=== PATIENT | female | born 1975 | race Hispanic/Latino ===

== ENCOUNTER 2016-10-15 19:24 | Inpatient (IN) | payer OTHER ==
[~2016-10-15] VITALS: Ht 149.9 cm; Wt 96.3 kg
[~2016-10-15 19:24] MED LIST: CYCL10TA9 PO; NAPR500T PO; NOMED; NPR500T PO; OMEP20TA86 PO; TOPI25TA26 PO
[2016-10-15 19:29] VITALS: BP 147/91; PULSE 104; RESP 18; O2SAT 100
--- NOTE | 2016-10-15 20:01 | ED.REPORT ---
HPI-Dyspnea / Wheezing Date of Service Oct 15, 2016 ED Provider: Issac Pelaez MD History of Present Illness: OCC This is a 41 year old female with a history of asthma presenting to the emergency department complaining go dyspnea that began 2 days ago. Associated with non-productive cough, pt now requiring albuterol at home every few minutes for mild relief. Robitussin has not provided cough relief. Denies fever, chills , sputum production, lower extremity swelling, headache, nausea, vomiting, abdominal pain. Nursing Notes Stated Complaint: WHEEZING/SOB/ASTHMA Chief Complaint: Respiratory Distress Nursing Notes Reviewed: Yes ([employer], [employer] not reconciled) Allergies: Coded Allergies: Penicillins (Verified Allergy, Severe, RASH, 10/15/16) hydrocodone bitartrate (Verified Allergy, Severe, N&V, 10/15/16) Scheduled Albuterol HFA (Proair HFA) 8.5 Gm Hfa.aer.ad 2 PUFFS INHALATION Q4H Beclomethasone Dipropionate (Qvar) 8.7 Gm Aer.w.adap 1 PUFF INHALATION BID Scheduled PRN Ranitidine (Ranitidine) 75 Mg Tablet 75 MG PO BIDWM PRN PRN For Dyspepsia or Heartburn General Time Seen by MD: 19:59 Chief Complaint Shortness of breath Hx Obtained From: Patient Arrived By: Walk-in Sudden in Onset?: Yes Onset Occurred: Yesterday Symptom Duration: Since onset Severity: Current: No pain currently Pertinent Negative: Pt denies other symptoms Recent Healthcare: No recent doctor visit, No recent hospitalization Similar Sx Previous: No Past Medical History Past Medical History Notes: obesity Past Medical History Diverticulitis Reports: Asthma, GERD Past Surgical History Umbilical hernia repair Bladder lift Reports: Cholecystectomy, Tonsillectomy Reports: Tubal ligation Family History None Smoking History Never Smoker Social History Alcohol Use: "Social" Drug Use: Denies drug use Other Social History: Ambulatory Status Independent Review of Systems Constitutional: Denies: Chills, Fever Respiratory: Reports: Non-productive cough, Shortness of breath Musculoskeletal: Reports: Back pain Complete sys rev & neg: except as marked. GI: Denies: Abdominal pain, Nausea, Vomiting Physical Exam Initial Vital Signs Vital Signs (First) Date Time Temp Pulse Resp B/P Pulse Ox O2 Delivery O2 Flow Rate FiO2 10/15/16 19:29 36.4 104 18 147/91 100 Room Air 10/15/16 21:18 8 Initial VS: Reviewed, Vital signs abnormal Head / Eyes: Atraumatic, Normocephalic, PERRL ENT: Mucous membranes moist, Conjunctiva normal, No scleral icterus Abdomen / GI: Soft, Non-tender, No guarding, No rebound, No distention Extremities: Vascular intact, Neuro intact, No swelling, No tenderness Skin: Warm, Dry, No cyanosis Neurologic: Alert, Oriented, Nonfocal Psychiatric: Mood/affect normal, Behavior normal, Normal thought content General/Constitutional: Awake, Alert Appearance / Presentation: Positive: Obese Uncomfortable, coughing Neck: Atraumatic, Supple, No meningismus, Full range of motion, No swelling, Non-tender, No masses Respiratory / Chest: No rales, No rhonchi Bronchospastic, poor air movement. Cardiovascular: Heart rate NL, Regular rhythm, Heart sounds NL, No murmurs, No rubs Interpretation & Diagnostics Lab Results Interpretation Result Diagram: 10/15/16199910/15/161999 Test 10/15/16 20:00 10/15/16 21:49 White Blood Count 5.6th/mm3 (3.8-10.1) Red Blood Count 4.61mil/mm3 (3.90-5.20) Hemoglobin 12.0g/dL (12.0-15.6) Hematocrit 38.1% (35.0-46.0) Mean Corpuscular Volume 82.6fL (81-100) Mean Corpuscular Hemoglobin 26.0pg (27.0-35.0) Mean Corpuscular Hemoglobin Concent 31.5% (32.0-37.0) Red Cell Distribution Width 15.7% (12.3-15.4) Platelet Count 296bil/L (150-400) Neutrophils (%) (Auto) 50.9% (40-74) Lymphocytes (%) (Auto) 27.1% (14-46) Monocytes (%) (Auto) 10.4% (4-12) Eosinophils (%) (Auto) 10.9% (0-5) Basophils (%) (Auto) 0.7% (0-3) Sodium Level 136mEq/L (134-144) Potassium Level 3.9mEq/L (3.5-5.2) Chloride Level 101mEq/L (97-108) Carbon Dioxide Level 23mmol/L (18-29) Blood Urea Nitrogen 8mg/dL (6-24) Creatinine 0.63mg/dL (0.57-1.00) Estimat Glomerular Filtration Rate 149mL/min (>59) Glucose Level 99mg/dL (60-99) Calcium Level 8.9mg/dL (8.5-10.1) Total Bilirubin 0.2mg/dL (0.0-1.2) Aspartate Amino Transf (AST/SGOT) 17U/L (0-50) Alanine Aminotransferase (ALT/SGPT) 19U/L (0-32) Alkaline Phosphatase 124U/L (25-150) Total Protein 7.2g/dL (6.4-8.4) Albumin 4.0g/dL (3.4-5.0) Procalcitonin 0.07ng/mL (0.00-0.08) Hold Garcia Top Tube Received (Received) Lab Results Interpretation: CBC Normal CMP normal The cultures 2 pending ECG Interpretation ECG Interpretation: KG demonstrate a normal sinus rhythm ventricular rate of 74 with no ischemic or dysrhythmic changes, complete. Improved With EKG demonstrating sinus tachycardia dated December 2015 Interpreted by: ED physician X-Ray Chest Interpretation Chest Xray Interpretation: IMPRESSION: Suspect mild or early pneumonia the right lower lobe, and possibly to a slight degree at the lateral left lung base. Dictated by: Tello Szymanski M.D. on 10/15/2016 at 20:22 Approved by: Tello Szymanski M.D. on 10/15/2016 at 20:23 Re-Eval/Medical Decision Med Decision/Clinical Course This is a 41-year-old female with a history of asthma developed a cough yesterday with increasing shortness breath and now is increasing wheezing and has been using her inhaler at home every hour without relief. There, but does not use a spacer and is unfamiliar with a spacer. Had intermittently severe asthma has been hospitalized but never intubated in the past. His really only accept with infections, and she developed a cold and a pronounced cough. The cough is really uncomfortable and with coughing spells becomes short of breath. On exam she is significantly bronchospastic with decreased air movement, and is in moderate respiratory distress. sHe is obese, but the rest of exam is unremarkable. She began aggressive therapy-with multiple rounds of beta agonists, and was given steroids, magnesium, and IV fluids. She remained persistently bronchospastic, although is improving. Chest reports the cough is really uncomfortable received a single dose of oxycodone along with Tessalon Perles for comfort. Her chest x-ray is read by the radiologist concerning for pneumonia, so cultures been added she is being tired with ceftriaxone and Zithromax. I think that the major issue remains her asthma exacerbation as the major component of her presentation, likely triggered by infection with pneumonia in the differential. He is improved, but even after multiple rounds of albuterol remains proximal spastic and symptomatic treatment and admission to the PCU is indicated. She is not required BiPAP, she does not appear clinically ill to require CCU. We does appear to have mild to moderate status asthmaticus. The case is discussed with the admitting hospitalist. Source of Hx: Old records Re-Evaluation/Progress #1: Time of Eval: 20:35 Treatment Summary: Albuterol nebulizer x 1 Patient Status: Mild relief Re-Evaluation/Progress #2: Time of Eval: 21:51 Patient Status: Mild relief Re-Evaluation/Progress Note: Discussed lab results and need for admission, all questions addressed. Consultation : Referral / Consult Name: Carito Emery DO Consulted With: Hospitalist Call Returned at: 22:25 Hemodialysis Technician: Accepts admit Counseled Regarding: Diagnosis, Lab results, Need for follow-up, Need for admission Discharge & Departure Impression: Primary Impression: Status asthmaticus Asthma severity: moderate persistent Qualified Code: J45.42 - Moderate persistent asthma with status asthmaticus Additional Impression: Pneumonia Pneumonia type: due to unspecified organism Laterality: unspecified laterality Lung location: unspecified part of lung Qualified Code: B99.9 - Unspecified infectious disease Disposition: ADMITTED TO HOSPITAL Discharge Condition All VS Reviewed: Yes Condition: Stable Referrals: NOPCP (PCP) Crit Care Except Billable Proc Time Spent: 30-74 minutes Services Performed: Patient management by me, Time spent at bedside Critical Care Notes: Management of status asthmaticus Scribe Attestation Portions of this note were transcribed by Ha Yu. I, Dr. Pelaez personally performed the history, physical exam and medical decision-making; I reviewed and confirmed the accuracy of the information in the transcribed note. Signed by: latisha Dumont. 10/15/2016, 23:30. Issac Pelaez MD Oct 15, 2016 20:01 HA YU Oct 15, 2016 20:05
[2016-10-15] MEDS ORDERED: Magnesium Sulf 2 Gm/50mL Water 2 GM in IV Premix 1 EACH IV ONE (20:05)
[2016-10-15] MEDS ORDERED: MethylprednisoLONE Sodium Succinate 62.5 mg/mL 2 mL Inj IVPUSH ONE (20:05)
[2016-10-15] MEDS ORDERED: Ipratropium 0.02% 0.5 mg/2.5 mL Inhalation Solution NEB ONE (20:05)
[2016-10-15] MEDS ORDERED: Albuterol 2.5 mg/3 mL Inhalation Solution NEB ONE ×4 (20:05→22:20)
[2016-10-15] MEDS ORDERED: oxyCODONE-Acetamin 5-325 mg Tablet PO ONE (20:10)
[2016-10-15 20:19] LABS: BASOPHILS % (AUTO) 0.7 % (0-3); EOSINOPHILS % (AUTO) 10.9 % (0-5); MONOCYTES % (AUTO) 10.4 % (4-12); Mean Corpuscular Volume 82.6 fL (81-100); NEUTROPHILS % (AUTO) 50.9 % (40-74); Platelet Count 296 bil/L (150-400)
[2016-10-15] MEDS ORDERED: 0.9% Sodium Chloride 100 ML ONE (20:20)
[2016-10-15 20:21] VITALS: PULSE 85; RESP 20; O2SAT 98
--- NOTE | 2016-10-15 20:23 | DRSVH ---
PROCEDURE: X-RAY CHEST ONE VIEW, PORTABLE ([id number]) INDICATIONS: dyspnea TECHNIQUE: One view of the chest was acquired. COMPARISON: [facility], CR, XR CHEST 2VW, 01/19/2016, 3:20. [facility], CR, XR CHEST 1VW (PORTABLE), 01/19/2016, 1:36. FINDINGS: Surgical changes and devices: None. Lungs and pleura: No pleural effusions or pneumothorax. Lungs are improved in appearance, with impr michael inspiratory volume. There does appear to be a small degree of alveolar infiltration at the righ t lower lobe, and possibly a slight degree at the lateral left lung base suggestive of mild or early pneumonia. Mediastinum: Mediastinal contours appear normal. Heart size is normal. Bones and chest wall: No suspicious bony lesions. Overlying soft tissues appear unremarkable. IMPRESSION: Suspect mild or early pneumonia the right lower lobe, and possibly to a slight degree at the lateral left lung base. Dictated by: Tello Szymanski M.D. on 10/15/2016 at 20:22 Approved by: Tello Szymanski M.D. on 10/15/2016 at 20:23
[2016-10-15 20:31] VITALS: PULSE 132
[2016-10-15 21:18] VITALS: BP 118/76; PULSE 126; RESP 22; O2SAT 99
[2016-10-15] MEDS ORDERED: cefTRIAXone Inj 2,000 MG in Dextrose 5% Minibag Plus 50 ML IV ONE (21:35)
[2016-10-15] MEDS ORDERED: Azithromycin Inj 500 MG in Dextrose 5% w/Vial Mate 250 ML IV ONE (21:35)
[2016-10-15] MEDS ORDERED: Polyethylene Glycol (PEG) 17 Gm Powder PO PRN (22:30)
[2016-10-15] MEDS ORDERED: Albuterol 2.5 mg/3 mL Inhalation Solution NEB PRN (22:30)
[2016-10-15] MEDS ORDERED: Alum-Mag Hydrox-Simeth 30 mL Suspension PO PRN (22:30)
--- NOTE | 2016-10-15 22:32 | PCM.HPMED ---
Subjective Date of Service Oct 15, 2016 Primary Provider: Admitting Physician: Carito Emery DO Primary Care Physician: Alaina Torres MD Attending Physician: Carito Emery DO Admit Status: From the Emergency Department Chief Complaint: dyspnea History of Present Illness: 41yoF with past medical history of asthma, obesity and GERD admitted with status asthmaticus secondary to URI/PNA. Patient states that she has been feeling well up until 2 days ago when she began having a productive cough and increased dyspnea. She went from requiring her rescue inhaler 1-2 a week to multiple times a day and also notes that she hasn't been able to sleep due to dyspnea. She denies fevers, chills, nausea or vomiting but endorses productive cough. She has not been exposed to sick contacts that she is aware of. She was diagnosed with asthma "years ago" and has never been intubated or hospitalized due to symptoms. On presentation patient with HR 104, RR 18, BP 147/91 sat 100% on RA. = Review of Systems: complete review of systems obtained. positive as per HPI otherwise negative. Allergies Coded Allergies: Penicillins (Verified Allergy, Severe, RASH, 10/15/16) hydrocodone bitartrate (Verified Allergy, Severe, N&V, 10/15/16) Home Medications Albuterol Qvar Ranitidine PMH obesity diverticulitis asthma GERD Surgical History umbilical hernia repair bladder lift cholecystectomy tonsillectomy tubal ligation Family History no family history of asthma Social History Hx Alcohol Use: Yes (1/month) Hx Substance Use: No Hx Tobacco Use: No Smoking Status: Never Smoker Exam Vital Signs Vital Sign - Last Date Time Temp Pulse Resp B/P Pulse Ox O2 Delivery O2 Flow Rate FiO2 10/15/16 21:18 37.0 126 22 118/76 99 Simple Mask 8 Lab and Diagnostics Result Diagram: 10/15/16199910/15/161999 Assessment & Plan 41yoF with past medical history of asthma, obesity and GERD admitted with status asthmaticus secondary to URI/PNA Status asthmaticus, acute, POA -secondary to URI / CAP, imaging with consolidation left lower -BCx, SputumCx, viral PCR pending -continue methylpred 125mg IV q6 at this time -albuterol neb 2.5 q2HR PRN Community acquired pneumonia, acute, POA -imaging reviewed, possible right lower lobe PNA -started ceftriaxone and azithromycin in ED, continue -guaifenesin-codiene PRN -incentive spirometry when appropriate GERD, chronic -continue ranitidine PRN Asthma, chronic -continue outpatient medications on discharge -please ensure patient has spacer for MDI Pain Evaluation: Adequate Pain Control GI Prophylaxis: H2 arminda VTE Prophylaxis: Sub-Q Heparin (Unfractionated) Resuscitation Status: CPR: Attempt Resuscitation Carito Emery DO Oct 15, 2016 22:32
[2016-10-15 22:47] VITALS: BP 128/74; PULSE 148; RESP 19; O2SAT 98
--- NOTE | 2016-10-15 23:00 | NUR ---
Admit to PCC 2016 Pt admitted to PCC room 2016 from ED in stable condition. Was able to ambulate from gurney to scale to bed with minimal exertional SOB. A&O x 3. Able to MELGAR with CMS intact. Tele shows ST 130s. Spo2 mid 90s on RA. 2L NC applied for comfort. Pt reports some chest tightness/rib pain from coughing. Denies n/v/d or abdominal pain. MD at bedside to order nebs for wheezing. Pt reports productive cough with yellow sputum. Oriented pt to room, floor, and call light. Care ongoing
[2016-10-15] MEDS ORDERED: RANI-426 PO (23:14)
[2016-10-15] MEDS ORDERED: BECL8.7A6 INHALATION (23:15)
[2016-10-15] MEDS ORDERED: ALBU8.5H2 INHALATION (23:15)
[2016-10-15] MEDS: Albuterol 2.5 mg/3 mL Inhalation Solution NEB SCH (23:49)
[2016-10-15 23:52] VITALS: PULSE 120; RESP 20; O2SAT 98
[2016-10-15] MEDS: Azithromycin Inj 500 MG in Dextrose 5% w/Vial Mate 250 ML IV SCH (23:56)
[2016-10-15] MEDS: cefTRIAXone Inj 2,000 MG in Dextrose 5% Minibag Plus 50 ML IV SCH (23:56)
[2016-10-16] VITALS (16 sets, daily range): BP systolic 103–130; BP diastolic 58–81; PULSE 90–133; RESP 18–32; O2SAT 91–100
[2016-10-16] MEDS ORDERED: Albuterol 2.5 mg/3 mL Inhalation Solution NEB SCH (00:30)
[2016-10-16] MEDS ORDERED: 0.9% Sodium Chloride 250 ML ONE (02:10)
[2016-10-16] MEDS: MethylprednisoLONE Sodium Succinate 62.5 mg/mL 2 mL Inj IVPUSH SCH ×4 (02:15→19:49)
[2016-10-16 04:09] LABS: BASOPHILS % (AUTO) 0.1 % (0-3); EOSINOPHILS % (AUTO) 0.1 % (0-5); MONOCYTES % (AUTO) 1.6 % (4-12); Mean Corpuscular Volume 82.6 fL (81-100); NEUTROPHILS % (AUTO) 93.8 % (40-74); Platelet Count 315 bil/L (150-400)
[2016-10-16] MEDS: Albuterol 2.5 mg/3 mL Inhalation Solution NEB SCH ×5 (04:17→21:13)
[2016-10-16] MEDS ORDERED: MethylprednisoLONE Sodium Succinate 62.5 mg/mL 2 mL Inj IVPUSH ONE (04:30)
[2016-10-16] MEDS: Codeine-guaiFENesin 10 mL Syrup PO PRN ×3 (09:24→19:48)
[2016-10-16] MEDS: Heparin 5,000 Unit/mL Inj SUBQ SCH ×2 (09:24→16:26)
--- NOTE | 2016-10-16 13:47 | PCM.PNMED ---
Subjective Date of Service Oct 16, 2016 Subjective 41-year-old woman with history of asthma presents with acute respiratory distress without hypoxia due to asthma Patient reports slight improvement in dyspnea today. She reports increased cough with yellow phlegm. No fever sweats or chills. No chest pain. No abdominal complaints. Exam Vital Signs Vital Sign - Last Date Time Temp Pulse Resp B/P Pulse Ox O2 Delivery O2 Flow Rate FiO2 10/16/16 12:26 36.8 111 18 123/74 95 Nasal Cannula 2.00 Intake and Output 10/15/16 10/15/16 10/16/16 Cumulative From/Thru 15:00 23:00 07:00 10/15/16 19:29 - 10/16/16 06:22 Intake Total 351 ml 351 ml Output Total 800 ml 800 ml Balance -449 ml -449 ml Intake IV Total 351 ml 351 ml Output Urine Total 800 ml 800 ml # Bowel Movements 0 0 Exam General: Obese woman, tachycardic but no acute distress HEENT: sclerae anicteric, oral mucosa moist Neck: no JVD Chest: Symmetric diffuse wheeze, full air movement Cardiac: S1S2, no murmur Abdomen: BS normal, non-tender Extremities: No edema Neuro: A&O, cranial nerves symmetric, motor strength 5/5, coordination normal IVs and Medications Medications Reviewed: Medications were reviewed in detail Lab and Diagnostics Result Diagram: 10/16/165 10/16/16324 X-Rays, CTs and MRIs PROCEDURE: X-RAY CHEST ONE VIEW, PORTABLE ([id number]) IMPRESSION: Suspect mild or early pneumonia the right lower lobe, and possibly to a slight degree at the lateral left lung base Dictated by: Tello Szymanski M.D. on 10/15/2016 at 20:22 . . Assessment & Plan 41yoF with past medical history of asthma, obesity and GERD admitted with status asthmaticus secondary to URI/PNA #Asthma exacerbation, acute, POA. Respiratory rate 18-20 on admission. No ABG performed. Oxygen saturation 100% on room air. Likely triggered by URI / CAP, viral versus bacterial, imaging with possible consolidation left lower. BCx, SputumCx, viral PCR pending -Received methylpred 125mg IV q6 24 hours, then switch to prednisone 40 mg daily 5 days -albuterol neb 2.5 q2HR PRN # Hyperglycemia. Not present on admission. Ongoing likely secondary to glucocorticoids. - Lower dose of glucocorticoids in a.m. - Follow blood glucose twice a day; treat if greater than 200 - Check hemoglobin A1c, in case. # Possible Community acquired pneumonia, acute, POA. Imaging reviewed, possible PNA; no fever or leukocytosis. -started ceftriaxone and azithromycin in ED, continue -guaifenesin-codiene PRN # GERD, chronic -continue ranitidine PRN # Asthma, chronic -continue outpatient medications on discharge -please ensure patient has spacer for MDI GI Prophylaxis: H2 arminda VTE Prophylaxis: Sub-Q Heparin (Unfractionated) VTE Mechanical Devices: Intermittant Pneumatic CD Resuscitation Status: CPR: Attempt Resuscitation Time spent 30 minutes in patient assessment, care coordination, personal review imaging. Lucius Barnett MD Oct 16, 2016 13:47
[2016-10-16] MEDS ORDERED: Glucose 40% Oral Gel 15 Gm Tube PO PRN (13:50)
--- NOTE | 2016-10-16 16:33 | NUR ---
Tele/Resp/Activity Patient a/o x 4, has persistant cough, c/o chest and rib pain with coughing. Lungs course bilat, neb tx given scheduled q [address] 120-130's all shift with actvity and at rest, RR 20-30's. paged and new orders recieved. Robitussin with codiene given x 2 and Tesslocydney pearls x 1. Patient oob to bathroom, steady gait. Taking diet well. VSS.
[2016-10-16] MEDS: Insulin LISPRO 300 Unit/3 mL Inj SUBQ SCH ×2 (17:20→22:00)
--- NOTE | 2016-10-16 22:59 | NUR ---
Edema Pt called at 2245 stating she feels she has leg and feet swelling. No changes noted from RN's 2100 assessment. Pt denies having any other symptoms. Continue to monitor.
[2016-10-17] VITALS (13 sets, daily range): BP systolic 102–136; BP diastolic 53–87; PULSE 79–120; RESP 16–22; O2SAT 91–96
[2016-10-17] MEDS: Heparin 5,000 Unit/mL Inj SUBQ SCH ×4 (00:34→23:43)
[2016-10-17] MEDS: Codeine-guaiFENesin 10 mL Syrup PO PRN ×4 (00:39→20:20)
[2016-10-17] MEDS: Albuterol 2.5 mg/3 mL Inhalation Solution NEB SCH ×6 (01:05→19:37)
[2016-10-17] MEDS ORDERED: 0.9% Sodium Chloride 250 ML ONE (04:53)
--- NOTE | 2016-10-17 07:55 | NUR ---
Social Work Note: Screen Note Data& Assessment: EMR reviewed. Radha Mackey is a 41 year old female admitted on 10/15/2016 for status asthmaticus pneumonia. Pt lives in [place] and [facility]. Per MD Pt is not medically ready at this time and will be having 2-3 more days of steroids. Pt is independent in her room. No discharge needs identified at this time. SW to continue to follow if any needs arise. Plan: Anticipated discharge home via POV when medically ready after steroid course. No discharge needs identified at this time. SW to continue to follow if any needs arise. AIDE Fitzgerald
[2016-10-17] MEDS: Insulin LISPRO 300 Unit/3 mL Inj SUBQ SCH ×4 (08:00→22:00)
[2016-10-17] MEDS: predniSONE 20 mg Tablet PO SCH (09:05)
--- NOTE | 2016-10-17 13:44 | NUR ---
Mentation/Resp/Viral/Activity Patient a/o x3, follows commands. On RA today so far with sats at 95%. Lungs decreased. Viral panel came back positive for human metapneumo virus. MD made aware and patient placed on Droplet/Contact Isolation per Micro. Patient made aware and some teaching done. Up in room independently w/o problems. Slightly SOB with exertion. Continuing with POC.
--- NOTE | 2016-10-17 16:13 | PCM.PNMED ---
Subjective Date of Service Oct 17, 2016 Subjective 41-year-old woman with history of asthma presents with acute respiratory distress without hypoxia due to asthma Patient reports mild improvement in dyspnea today. Continues to cough with any deep inspiration. Phlegm seems white-yellow. No fever sweats or chills. No chest pain. No abdominal complaints. Exam Vital Signs Vital Sign - Last Date Time Temp Pulse Resp B/P Pulse Ox O2 Delivery O2 Flow Rate FiO2 10/17/16 12:25 36.9 104 22 102/53 92 Room Air 10/16/16 23:37 2.00 Intake and Output 10/16/16 10/16/16 10/17/16 Cumulative From/Thru 15:00 23:00 07:00 10/15/16 19:29 - 10/17/16 06:12 Intake Total 782 ml 1043 ml 2176 ml Output Total 725 ml 500 ml 2025 ml Balance 57 ml 543 ml 151 ml Intake Oral 676 ml 920 ml 1596 ml IV Total 106 ml 123 ml 580 ml Output Urine Total 725 ml 500 ml 2025 ml # Bowel Movements 0 0 0 Exam General: Obese woman, no acute distress HEENT: sclerae anicteric, oral mucosa moist Neck: no JVD evident Chest: Symmetric diffuse wheeze, full air movement Cardiac: S1S2, no murmur Abdomen: BS normal, non-tender Extremities: No edema Neuro: A&O, cranial nerves symmetric, motor strength 5/5, coordination normal, ambulation normal IVs and Medications Medications Reviewed: Medications were reviewed in detail Lab and Diagnostics Result Diagram: 10/16/16 0325 10/16/16 0325 Microbiology Respiratory PCR panel positive for meta-pneumovirus X-Rays, CTs and MRIs PROCEDURE: X-RAY CHEST ONE VIEW, PORTABLE ([id number]) IMPRESSION: Suspect mild or early pneumonia the right lower lobe, and possibly to a slight degree at the lateral left lung base Dictated by: Tello Szymanski M.D. on 10/15/2016 at 20:22 . . Assessment & Plan 41yoF with past medical history of asthma, obesity and GERD admitted with status asthmaticus secondary to URI/PNA #Asthma exacerbation, acute, POA. Respiratory rate 18-20 on admission. No ABG performed. Oxygen saturation 100% on room air. Likely triggered by viral URI / CAP, viral versus bacterial, imaging with possible consolidation left lower. BCx, SputumCx, viral PCR pending - Received methylpred 125mg IV q6 24 hours, then switch to prednisone 40 mg daily 5 days - albuterol neb 2.5 q2HR PRN - Plan to discontinue antibiotics as sputum begins to clear # Hyperglycemia. Not present on admission. Ongoing likely secondary to glucocorticoids. - Lower dose of glucocorticoids in a.m. - Follow blood glucose twice a day; treat if greater than 200 - Check hemoglobin A1c, in case. # Possible Community acquired pneumonia, acute, POA. Imaging reviewed, possible PNA; no fever or leukocytosis. - Continue ceftriaxone and azithromycin -guaifenesin-codiene PRN # GERD, chronic -continue ranitidine PRN # Asthma, chronic -continue outpatient medications on discharge -please ensure patient has spacer for MDI GI Prophylaxis: H2 arminda VTE Prophylaxis: Sub-Q Heparin (Unfractionated) VTE Mechanical Devices: Intermittant Pneumatic CD Resuscitation Status: CPR: Attempt Resuscitation Time spent 30 minutes Lucius Barnett MD Oct 17, 2016 16:13
[2016-10-17] MEDS: cefTRIAXone Inj 2,000 MG in Dextrose 5% Minibag Plus 50 ML IV SCH (21:47)
[2016-10-17] MEDS: Azithromycin Inj 500 MG in Dextrose 5% w/Vial Mate 250 ML IV SCH (23:36)
[2016-10-18] VITALS (10 sets, daily range): BP systolic 97–126; BP diastolic 60–78; PULSE 72–110; RESP 16–24; O2SAT 93–98
[2016-10-18] MEDS: Albuterol 2.5 mg/3 mL Inhalation Solution NEB SCH ×6 (00:30→20:03)
[2016-10-18] MEDS: Codeine-guaiFENesin 10 mL Syrup PO PRN ×4 (03:23→21:55)
--- NOTE | 2016-10-18 05:08 | NUR ---
Pain /Cough Pt c/o rib pain 5-7 out of 10. Pt medicated with Tylenol alternating with 2mg IV Morphine with moderate relief of pain. Pt medicated with Robitussin AC and Tessalon Pearles about every 6 hours for cough with moderate relief of cough. RA SpO2 sats 95-96%.
[2016-10-18] MEDS: Insulin LISPRO 300 Unit/3 mL Inj SUBQ SCH ×4 (08:00→22:00)
[2016-10-18] MEDS: Heparin 5,000 Unit/mL Inj SUBQ SCH ×2 (08:10→15:32)
[2016-10-18] MEDS: predniSONE 20 mg Tablet PO SCH (08:11)
--- NOTE | 2016-10-18 14:13 | PCM.PNMED ---
Subjective Date of Service Oct 18, 2016 Subjective 41-year-old woman with history of asthma presents with acute respiratory distress without hypoxia due to asthma with viral respiratory infection Patient reports mild improvement in dyspnea today. Able to speak at greater length. Continues to cough with any deep inspiration. Phlegm mostly white. No fever sweats or chills. No chest pain. No abdominal complaints. Exam Vital Signs Vital Sign - Last Date Time Temp Pulse Resp B/P Pulse Ox O2 Delivery O2 Flow Rate FiO2 10/18/16 13:10 110 20 93 Room Air 10/18/16 11:50 36.9 108/68 10/16/16 23:37 2.00 Intake and Output 10/17/16 10/17/16 10/18/16 Cumulative From/Thru 15:00 23:00 07:00 10/15/16 19:29 - 10/18/16 04:55 Intake Total 2686 ml 937 ml 5799 ml Output Total 1886 ml 700 ml 4611 ml Balance 800 ml 237 ml 1188 ml Intake Oral 2686 ml 600 ml 4882 ml IV Total 337 ml 917 ml Output Urine Total 1886 ml 700 ml 4611 ml # Bowel Movements 2 0 2 Exam General: Obese woman, no acute distress HEENT: sclerae anicteric, oral mucosa moist Neck: no JVD evident Chest: Symmetric diffuse mild wheeze, good air movement but coughs with inspiration Cardiac: S1S2, no murmur Abdomen: BS normal, non-tender Extremities: No pitting edema Neuro: A&O, cranial nerves symmetric, motor strength 5/5, coordination normal, ambulation normal IVs and Medications Medications Reviewed: Medications were reviewed in detail Lab and Diagnostics Result Diagram: 10/16/16 0325 10/16/16 0325 Microbiology Respiratory PCR panel positive for meta-pneumovirus. Strep pneumonia antigen screen negative. MRSA negative. Blood cultures negative X-Rays, CTs and MRIs PROCEDURE: X-RAY CHEST ONE VIEW, PORTABLE ([id number]) IMPRESSION: Suspect mild or early pneumonia the right lower lobe, and possibly to a slight degree at the lateral left lung base Dictated by: Tello Szymanski M.D. on 10/15/2016 at 20:22 . . Assessment & Plan 41yoF with past medical history of asthma, obesity and GERD admitted with status asthmaticus secondary to URI/PNA #Asthma exacerbation, acute, POA. Respiratory rate 18-20 on admission. No ABG performed. Oxygen saturation 100% on room air. Likely triggered by viral URI / CAP, viral versus bacterial, imaging with possible consolidation left lower. BCx, SputumCx, viral PCR pending. Overall clinical picture does not suggest pneumonia. Received methylpred 125mg IV q6 24 hours, then switch to prednisone - Continue prednisone 40 mg daily 7 days - albuterol neb 2.5 q2HR PRN - Add montelukast - Increased frequency of Tessalon - guaifenesin-codiene PRN - Repeat chest x-ray to clarify initial impression of infiltrate - Discontinue antibiotics as sputum begins to clear # Hyperglycemia. Not present on admission. Ongoing likely secondary to glucocorticoids. - Improved with Lower dose of glucocorticoids # Possible Community acquired pneumonia, acute, POA. Imaging reviewed, possible PNA; no fever or leukocytosis. Moderate to severe cough - Repeat chest x-ray -Discontinue ceftriaxone and azithromycin if no clear infiltrate # GERD, chronic -continue ranitidine PRN # Asthma, chronic -Restart Qvar to see if patient can tolerate inhaler medications -please ensure patient has spacer for MDI Discharge plan: Patient is still moderately symptomatic making slow improvement. I have suggested that if the trend is favorable tomorrow, she may continue her convalescence at home if there are no other critical inpatient medications if antibiotics are discontinued pending a repeat chest x-ray. GI Prophylaxis: H2 arminda VTE Prophylaxis: Sub-Q Heparin (Unfractionated) VTE Mechanical Devices: Intermittant Pneumatic CD Resuscitation Status: CPR: Attempt Resuscitation Time spent 30 minutes Lucius Barnett MD Oct 18, 2016 14:13
--- NOTE | 2016-10-18 16:54 | DRSVH ---
PROCEDURE: X-RAY CHEST, TWO VIEWS ([id number]) INDICATIONS: 41 year-old female with shortness of breath. TECHNIQUE: 2 views of the chest were acquired. COMPARISON: [facility], CR, XR CHEST 1VW (PORTABLE), 10/15/2016, 19:58. [facility], CR, XR CHEST 2VW, 01/19/2016, 3:20. [facility], CR, XR CHEST 1VW (PORTABLE), 01/18, 1:36. FINDINGS: Surgical changes and devices: Patient is status post cholecystectomy. Lungs and pleura: No pleural effusions or pneumothorax. Lungs are clear. Lung volumes are decrease d. Mediastinum: Mediastinal contours are normal. Heart size is normal. Bones and chest wall: No suspicious bony abnormalities. Soft tissues appear unremarkable. IMPRESSION: Decreased lung volumes, without acute cardiopulmonary disease. Dictated by: Serjio Uribe M.D. on 10/18/2016 at 16:46 Approved by: Serjio Uribe M.D. on 10/18/2016 at 16:47
--- NOTE | 2016-10-18 17:14 | NUR ---
Social Work: Readiness for Discharge D: Pt discussed in am rounds. Pt still requiring hospitalization but is expected to discharge in 1-2 days. Pt continues to require steroids. Pt has been I during admission. EMR reviewed, No sw needs identified at this time. Pt has not completed advanced directives- NURSING PROGRAM COORDINATOR provide pt with copy if she chooses to complete for the future. A: Pt who is I at baseline. P: Anticipate pt to discharge home via POV once medically stable. NURSING PROGRAM COORDINATOR to continue to follow. AIDE Colbert
[2016-10-18] MEDS: Fluticasone 100 mCg Inhaler INHALATION SCH (17:48)
--- NOTE | 2016-10-18 18:15 | NUR ---
Breathing Patient received extra nebulizer treatments this AM which she states has helped improve her breathing/decrease coughing. Patient Maintaining SpO2 in the mid 90s on RA. Patient ambulating around unit independently. Denies pain other than mild discomfort with coughing.
[2016-10-19] MEDS: Albuterol 2.5 mg/3 mL Inhalation Solution NEB SCH ×3 (00:39→08:06)
[2016-10-19 00:40] VITALS: PULSE 91; RESP 20; O2SAT 95
[2016-10-19] MEDS: Heparin 5,000 Unit/mL Inj SUBQ SCH ×2 (01:59→08:56)
[2016-10-19] MEDS: Codeine-guaiFENesin 10 mL Syrup PO PRN ×2 (02:00→06:34)
[2016-10-19 05:19] VITALS: PULSE 81; RESP 18; O2SAT 97
[2016-10-19 06:25] VITALS: BP 101/66; PULSE 80; RESP 18; O2SAT 96
[2016-10-19] MEDS: Insulin LISPRO 300 Unit/3 mL Inj SUBQ SCH ×2 (08:00→12:00)
[2016-10-19 08:08] VITALS: PULSE 77; RESP 18; O2SAT 96
[2016-10-19] MEDS: Fluticasone 100 mCg Inhaler INHALATION SCH (08:55)
[2016-10-19] MEDS: predniSONE 20 mg Tablet PO SCH (08:56)
[2016-10-19] MEDS ORDERED: BENZ100C8 PO (09:24)
[2016-10-19] MEDS ORDERED: PRED-508 PO (09:24)
[2016-10-19] MEDS ORDERED: GUAI10LI PO (09:24)
--- NOTE | 2016-10-19 10:06 | PCM.DIMED ---
Discharge Instructions Date of Service Oct 19, 2016 Dates of Hospitalization Oct 15, 2016 at 22:11 Discharge Diagnosis Discharge Diagnosis Asthma exacerbation; viral respiratory illness Diet No restrictions Activity Limited until seen by PCP Call your provider Shortness of breath Patient Instructions You should continue to use your albuterol inhaler with spacer every 4 hours as needed when you are awake. You should continue to use Qvar at your previous dose. If you need prescription renewal of these medications contact Dr. Torres office. You should take prednisone for 3 more days. A prescription for prednisone and for the cough tablets Tessalon has been transmitted to your pharmacy. You may also take cough syrup and a prescription is printed for you to take to your pharmacy. You should expect to have cough and limited ability to perform physical activities for at least another week. As long as you are feeling gradually better, there is no need to change plan. If you experience a high fever ( greater than 101.5) or significant increase in productive cough or any other severe symptoms you should contact Dr. Torres office, or return to the emergency department. Follow-up Provider: Alaina Torres MD Follow-up with PCP in: 1 week Lucius Barnett MD Oct 19, 2016 09:32
--- NOTE | 2016-10-19 10:35 | NUR ---
Social Work: Discharge Data: Pt is on day 4 of hospitalization. EMR reviewed, pt discussed in rounds. D/C orders are in. No d/c planning needs at this time. MUSIC RESEARCHER will continue to follow if needs arise. Assessment: Pt who is independent at baseline. Plan: Pt will d/c home via POV today. No d/c planning needs at this time. MUSIC RESEARCHER will continue to follow if needs arise. AIDE Lynn
[2016-10-19] MEDS ORDERED: OXYC1TAB24 PO (11:26)
--- NOTE | 2016-10-19 12:25 | NUR ---
Discharge Patient ambulated to [facility] with a nursing staff member at 1220. IV was d/c intact. Medications reviewed with patient and all of patients d/c information was reviewed with her. All of her questions were answered to her satisfaction. Patient driven to home by family member.
--- NOTE | 2016-10-19 18:13 | PCM.DC.MED ---
Discharge Summary Date of Service Oct 19, 2016 Dates of Hospitalization Date of Hospital Admission Oct 15, 2016 at 22:11 Date of Discharge: Oct 19, 2016 Providers: Admitting Physician: Carito Emery DO Primary Care Physician: Alaina Torres MD Attending Physician: Carito Emery DO Diagnosis at Time of Discharge Diagnosis at Time of Discharge Asthma exacerbation; viral respiratory illness Procedures XRay, CTs & MRIs PROCEDURE: X-RAY CHEST ONE VIEW, PORTABLE ([id number]) IMPRESSION: Suspect mild or early pneumonia the right lower lobe, and possibly to a slight degree at the lateral left lung base Dictated by: Tello Szymanski M.D. on 10/15/2016 at 20:22 . PROCEDURE: X-RAY CHEST, TWO VIEWS ([id number]) IMPRESSION: Decreased lung volumes, without acute cardiopulmonary disease. Dictated by: Serjio Uribe M.D. on 10/18/2016 at 16:46 . Brief History History of Present Illness (per admission note): 41yoF with past medical history of asthma, obesity and GERD admitted with status asthmaticus secondary to URI/PNA. Patient states that she has been feeling well up until 2 days ago when she began having a productive cough and increased dyspnea. She went from requiring her rescue inhaler 1-2 a week to multiple times a day and also notes that she hasn't been able to sleep due to dyspnea. She denies fevers, chills, nausea or vomiting but endorses productive cough. She has not been exposed to sick contacts that she is aware of. She was diagnosed with asthma "years ago" and has never been intubated or hospitalized due to symptoms. On presentation patient with HR 104, RR 18, BP 147 /91 sat 100% on RA. . Hospital Course #Asthma exacerbation, acute, POA. Respiratory rate 18-20 on admission. No ABG performed. Oxygen saturation 100% on room air. Likely triggered by viral URI / metapneumovirus positive, imaging initially suggest consolidation but no infiltrate on repeat chest x-ray. Cultures negative. Overall clinical picture does not suggest pneumonia. Received methylpred 125mg IV q6 24 hours, then switch to prednisone - Continue prednisone 40 mg daily 7 days - albuterol neb 2.5 q2HR PRN - Add montelukast - Increased frequency of Tessalon - guaifenesin-codiene PRN - Repeat chest x-ray to clarify initial impression of infiltrate showed no infiltrate - Discontinued antibiotics # Hyperglycemia. Not present on admission. Ongoing likely secondary to glucocorticoids. - Improved with Lower dose of glucocorticoids # Possible Community acquired pneumonia, acute, POA. Imaging reviewed, possible PNA; no fever or leukocytosis. Moderate to severe cough -Discontinue ceftriaxone and azithromycin # GERD, chronic -continue ranitidine PRN # Asthma, chronic -Restart Qvar - patient able to tolerate inhaled asthma medicines - patient has spacer for MDI Exam Vital Signs (Last) Date Time Temp Pulse Resp B/P Pulse Ox O2 Delivery O2 Flow Rate FiO2 10/19/16 08:08 77 18 96 Room Air 10/19/16 06:25 36.6 101/66 10/16/16 23:37 2.00 Exam General: Obese woman, coughs with deep inspiration, no acute distress HEENT: sclerae anicteric, oral mucosa moist Neck: no JVD Chest: Diffuse mild wheezing, generally good air movement, cough with inspiration Cardiac: S1S2, no murmur Abdomen: BS normal, non-tender Extremities: No pitting edema Neuro: A&O, cranial nerves symmetric, motor strength 5/5, coordination normal, ambulation normal Test 10/15/16 20:00 10/15/16 21:49 10/16/16 03:25 Total Bilirubin 0.2mg/dL (0.0-1.2) Aspartate Amino Transf (AST/SGOT) 17U/L (0-50) Alanine Aminotransferase (ALT/SGPT) 19U/L (0-32) Alkaline Phosphatase 124U/L (25-150) Total Protein 7.2g/dL (6.4-8.4) Albumin 4.0g/dL (3.4-5.0) Procalcitonin 0.07ng/mL (0.00-0.08) Hold Garcia Top Tube Received (Received) White Blood Count 8.3th/mm3 (3.8-10.1) Red Blood Count 4.42mil/mm3 (3.90-5.20) Hemoglobin 11.5g/dL (12.0-15.6) Hematocrit 36.5% (35.0-46.0) Mean Corpuscular Volume 82.6fL (81-100) Mean Corpuscular Hemoglobin 26.0pg (27.0-35.0) Mean Corpuscular Hemoglobin Concent 31.5% (32.0-37.0) Red Cell Distribution Width 15.7% (12.3-15.4) Platelet Count 315bil/L (150-400) Neutrophils (%) (Auto) 93.8% (40-74) Lymphocytes (%) (Auto) 4.2% (14-46) Monocytes (%) (Auto) 1.6% (4-12) Eosinophils (%) (Auto) 0.1% (0-5) Basophils (%) (Auto) 0.1% (0-3) Sodium Level 139mEq/L (134-144) Potassium Level 3.8mEq/L (3.5-5.2) Chloride Level 101mEq/L (97-108) Carbon Dioxide Level 19mmol/L (18-29) Blood Urea Nitrogen 8mg/dL (6-24) Creatinine 0.68mg/dL (0.57-1.00) Estimat Glomerular Filtration Rate 137mL/min (>59) Glucose Level 184mg/dL (60-99) Hemoglobin A1c 5.7% (4.8-5.6) Calcium Level 8.5mg/dL (8.5-10.1) Microbiology Results Respiratory PCR panel positive for meta-pneumovirus. Strep pneumonia antigen screen negative. MRSA negative. Blood cultures negative Discharge Medications Discharge Medications Albuterol HFA (Proair HFA) 8.5 Gm Hfa.aer.ad 2 PUFFS INHALATION Q4H (Reported) Beclomethasone Dipropionate (Qvar) 8.7 Gm Aer.w.adap 1 PUFF INHALATION BID ( Reported) Prednisone (Deltasone) 20 Mg Tablet 40 MG PO DAILY Prescribed by: YAMINI SANTIAGO MD As needed Benzonatate (Benzonatate) 100 Mg Capsule 100 MG PO Q4 PRN PRN For Cough Prescribed by: YAMINI SANTIAGO MD Guaifenesin/Codeine Phosphate (Guaifenesin-Codeine Syrup) 10 Ml Liquid 10 ML PO Q4H PRN PRN For Cough Prescribed by: YAMINI SANTIAGO MD Ranitidine (Ranitidine) 75 Mg Tablet 75 MG PO BIDWM PRN PRN For Dyspepsia or Heartburn (Reported) oxyCODONE-Acetaminophen 5-325 mg (oxyCODONE-Acetaminophen 5-325 mg) 1 Each Tablet 1 TAB PO Q6H PRN PRN For Pain for severe rib pain Prescribed by: YAMINI SANTIAGO MD Followup Plan Discharge Diet: No restrictions Discharge Activity: Limited until seen by PCP Patient Instructions You should continue to use your albuterol inhaler with spacer every 4 hours as needed when you are awake. You should continue to use Qvar at your previous dose. If you need prescription renewal of these medications contact Dr. Torres office. You should take prednisone for 3 more days. A prescription for prednisone and for the cough tablets Tessalon has been transmitted to your pharmacy. You may also take cough syrup and a prescription is printed for you to take to your pharmacy. You should expect to have cough and limited ability to perform physical activities for at least another week. As long as you are feeling gradually better, there is no need to change plan. If you experience a high fever ( greater than 101.5) or significant increase in productive cough or any other severe symptoms you should contact Dr. Torres office, or return to the emergency department. Follow-up Provider: Alaina Torres MD Follow-up with PCP in: 1 week Time spent 35 minutes copies to: Alaina Torres MD, Jeffrey W MD Oct 19, 2016 10:06
== END 2016-10-19 12:25 | disposition home or self-care (01) | DRG 202 ==
LOC: SED 19:24 → PCC 22:11 → MPC 10-18 21:06
PROVIDERS: ADMIT Internal Medicine; ATTEND Internal Medicine
DX: J45.42 Moderate persistent asthma with status asthmaticus (principal); J18.9 Pneumonia, unspecified organism; K21.9 Gastro-esophageal reflux disease without esophagitis; R73.9 Hyperglycemia, unspecified; T38.0X5A Adverse effect of glucocorticoids and synthetic analogues, initial encounter